=== PATIENT | male | born 1970 | race Caucasian/White ===

== ENCOUNTER → 2025-03-01 | Outpatient (CLI) | payer BC, SELFPAY ==
--- NOTE | 2025-03-01 10:32 | XR_ITS ---
Examination: Testicular sonography complete TECHNIQUE: Grayscale sonographic images testes, assessment arterial inflow venous outflow Doppler spectral analysis carful analysis INDICATIONS: Palpable lump posterior penis noticed beginning 3 weeks ago. FINDINGS: Right testis 4.2 cm epididymis 12 mm Arterial flow testicle. No testicular mass Left testis 4.1 cm epididymis 12 mm Arterial flow testicle. No testicular mass Hypoechoic solid nonvascular mass in the posterior penis at the area concern, 6 x 6 x 6 mm IMPRESSION: 6 x 6 x 6 mm soft tissue mass posterior penis at the area concern, clinical correlation advised Recommend urology consultation
== END | disposition home or self-care (01) ==
PROVIDERS: PCP Internal Medicine; Referring Provider Internal Medicine; Visit Provider Internal Medicine
DX: R22.9 Localized swelling, mass and lump, unspecified (principal)
CPT/HCPCS: 76870

== ENCOUNTER 2025-05-25 10:10 | Day surgery (SDC) | payer BC, SELFPAY ==
--- NOTE | 2025-05-24 07:00 | EKG_ITS ---
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
[2025-05-24 09:36] VITALS: BMI 34.2
[2025-05-24 11:54] LABS: Basophils # (Auto) 0.1 Thou/mm3 (0.0-0.2); Basophils % (Auto) 1 % (0-2.5); Eosinophils # (Auto) 0.2 Thou/mm3 (0.0-0.5); Eosinophils % (Auto) 2 % (0-10); Hematocrit 47.1 % (41.0-53.0); Hemoglobin 16.4 g/dL (13.5-16.0); Immature Granulocytes Auto 0.02 Thou/mm3 (0.00-0.00); Lymphocytes # (Auto) 1.3 Thou/mm3 (1.0-4.8); Lymphocytes % (Auto) 17 % (10-50); Mean Corpuscular HGB Conc 34.8 g/dl (31.0-37.0); Mean Corpuscular Hemoglobin 34.7 pg (25.0-35.0); Mean Corpuscular Volume 100 fL (80-100); Monocytes # (Auto) 0.8 Thou/mm3 (0.0-0.8); Monocytes % (Auto) 10 % (0-12); Neutrophils # (Auto) 5.4 Thou/mm3 (1.8-7.7); Neutrophils % (Auto) 70 % (37-80); Nucleated Red Blood Cell # 0.00 Thou/mm3 (0.00-0.00); Nucleated Red Blood Cell % 0 /100 WBC (0); Platelet Count 206 Thou/mm3 (140-440); RDW Standard Deviation 50.0 fL (35.1-43.9); Red Blood Count 4.72 Miln/mm3 (4.50-5.90); White Blood Count 7.8 Thou/mm3 (3.8-10.6)
[2025-05-24 12:04] LABS: Alanine Aminotransferase 33 U/L (10-49); Albumin, Serum 4.0 gm/dL (3.5-5.0); Albumin/Globulin Ratio 1.7 (1.2-2.2); Alkaline Phosphatase 60 U/L (46-116); Anion Gap 7 (7-16); Aspartate Amino Transferase 26 U/L (0-34); BUN/Creatinine Ratio 8 Ratio (12-20); Bilirubin,Total 1.1 mg/dL (0.3-1.2); Blood Urea Nitrogen 8 mg/dL (9-23); Calcium 9.1 mg/dL (8.3-10.6); Calcium (Corrected) 9.1 mg/dL (8.5-10.1); Carbon Dioxide 27.8 mMol/L (20.0-31.0); Chloride 108 mMol/L (98-107); Creatinine (Component) 1.0 mg/dL (0.6-1.3); Estimated Creatinine Clearance 103.3 mL/min (>60); Globulin 2.4 gm/dL (2.3-3.5); Glucose 94 mg/dL (74-106); Osmolality,Calculated 283 (275-295); Potassium 4.4 mMol/L (3.4-5.1); Sodium 143 mMol/L (136-145); Total Protein 6.4 gm/dL (5.7-8.2); eGFR > 60 See Note
--- NOTE | 2025-05-25 10:55 | CHAP ---
Visited briefly with patient. Patient stated that he wasn't orthodoxy and did not want prayer. I wished him well.
[2025-05-25 11:00] VITALS: BP 127/87; PULSE 87; RESP 20; TEMP 36.2; O2SAT 97; BMI 34.2
[2025-05-25 12:17] VITALS: BP 107/73; PULSE 80; RESP 18; TEMP 36.4; O2SAT 100
--- NOTE | 2025-05-25 12:17 | SUR.PHASEII ---
pt received from OR in recovery bay 2. pt awake and alert, breathing unlabored on oxymask 4l. v/s stable. pt dressing to upper back cdi. report received from Dr. Hoyt and Vamsi LEONG.
[2025-05-25 12:25] VITALS: BP 103/74; PULSE 80; RESP 20; TEMP 36.4; O2SAT 100
--- NOTE | 2025-05-25 12:28 | PD.SUROPNT ---
Date of Procedure 05/25/25 Pre Op Diagnosis Left upper back and mid back masses Post Op Diagnosis Left upper back and mid back subcutaneous masses Procedure Excision of left upper and mid back masses Findings 3.5 cm left upper back and 4 cm mid back masses Procedure Description Patient brought into operating room supine position. After administration of monitored anesthesia care, patient was placed in right lateral decubitus position. His back was prepped and draped in standard surgical manner. Procedure started on patient's mid back. After administration of local anesthesia an approximately 5 cm elliptical incision was made and dissection was deepened into soft tissue. The underlying mass was circumferentially dissected off surrounding soft tissue and excised. The wound was washed and irrigated. Hemostasis achieved using lecture cautery. Subcutaneous tissue closed with interrupted sutures using 2-0 Vicryl and the incision was closed with 2-0 nylon in simple interrupted sutures. The procedure was then performed in similar fashion over his left upper back mass. Antibiotic ointment applied on both incisions and both incisions were covered with sterile dressings. Patient tolerated procedure well. He was placed in supine position. He was breathing spontaneously without difficulty and was transferred to postanesthesia care in stable condition. Instruments, needles and sponge counts were reported to be correct x 2. Anesthesia MAC and local Pathology / specimen Other (Back masses) Estimated Blood Loss 5 Condition Stable Disposition PACU Surgeon Katelynn Zaragoza MD Surgical Staff Operation Date: 05/25/25 12:30 Case Staff Anesthesiologist: Jon Hoyt
[2025-05-25 12:30] VITALS: BP 105/74; PULSE 74; RESP 20; TEMP 36.4; O2SAT 97
--- NOTE | 2025-05-25 12:30 | SUR.PHASEII ---
pt able to tolerate oral fluids without difficulty swallowing or nausea/vomiting.
[2025-05-25 12:35] VITALS: BP 104/70; PULSE 71; RESP 20; O2SAT 97
[2025-05-25 12:45] VITALS: BP 109/78; PULSE 76; RESP 20; TEMP 36.3; O2SAT 99
--- NOTE | 2025-05-25 12:48 | SUR.PHASEII ---
pt awake and alert, breathing unlabored on room air. v/s stable. pt dressing to upper back cdi. pt able to ambulate to wheelchair with steady gait. d/c instructions given with Fay in room, all questions answered. pt d/c via wheelchair with all belongings.
== END 2025-05-25 12:48 | disposition home or self-care (01) ==
PROVIDERS: Anesthesiology; PCP Internal Medicine; Referring Provider Surgery; Visit Provider Surgery
PROC: (CPT 21931; principal; 2025-05-25 12:15)
DX: L72.8 Other follicular cysts of the skin and subcutaneous tissue (principal); E78.00 Pure hypercholesterolemia, unspecified; I10 Essential (primary) hypertension; Z01.810 Encounter for preprocedural cardiovascular examination
CPT/HCPCS: 21931; 36415; 80053; 85025; 93005; A4217; A4649; J0690; J1885; J2250; J2405; J2704; J3010; J3490